=== PATIENT | female | born 1990 | race American Indian/Alaskan Native ===

== ENCOUNTER 2017-10-22 23:10 | Emergency (ER) | payer OTHER ==
[~2017-10-22] VITALS: Ht 160 cm; Wt 50.4 kg
[~2017-10-22 23:10] MED LIST: NON-ASPIRIN EX500 MG PO; ZOLOFT50 MG PO
== END 2017-10-23 00:01 | disposition left against medical advice (07) ==
LOC: ED 23:10
DX: Z53.21 Procedure and treatment not carried out due to patient leaving prior to being seen by health care provider (principal)

== ENCOUNTER 2023-02-03 18:35 | Emergency (ER) | payer OTHER ==
[~2023-02-03] VITALS: Ht 160 cm; Wt 88.0 kg
[~2023-02-03 18:35] MED LIST changes: +BACTRIM DS TAB1 EACH PO
--- OUTSIDE RECORDS SUMMARY | 2023-02-03 18:43 | XMS ---
PreManage Notification: ROB SANTORO Security Hot Room Attendant Events No recent Security Events currently on file CRITERIA MET - Group Notification CARE PROVIDERS There are no care providers on record at this time. Janice has no Care Guidelines for this patient. Thom VISIT COUNT (12 MO.) 1 [facility] TOTAL 1 NOTE: Visits indicate total known visits. ED/C VISIT TRACKING (12 MO.) 02/03/2023 18:36 [facility] [place] TYPE: Emergency COMPLAINT: - LT FINGER LACERATION INPATIENT VISIT TRACKING (12 MO.) No inpatient visits to display in this time frame [id number]
[2023-02-03 21:00] VITALS: BP 114/78
== END 2023-02-03 21:00 | disposition home or self-care (01) ==
LOC: ED 18:35
DX: S61.215A Laceration without foreign body of left ring finger without damage to nail, initial encounter (principal); W45.8XXA Other foreign body or object entering through skin, initial encounter; F17.200 Nicotine dependence, unspecified, uncomplicated; Z23 Encounter for immunization; Z79.899 Other long term (current) drug therapy
CPT/HCPCS: 90471; 90715; 99282-25

== ENCOUNTER 2025-02-12 17:30 | Emergency (ER) | payer OTHER ==
--- OUTSIDE RECORDS SUMMARY | 2025-02-12 17:36 | XMS ---
PreManage Notification: ROB SANTORO Security Policy Intern Events No recent Security Events currently on file CRITERIA MET - Group Notification - [facility] - 2 Visits in 30 Days CARE PROVIDERS There are no care providers on record at this time. Janice has no Care Guidelines for this patient. [facility] NOTE: Visits indicate total known visits. ED/C VISIT TRACKING (12 MO.) [facility] COMPLAINT: - TEST 01/14/2025 06:58 [facility] [place] TYPE: Emergency COMPLAINT: - MEDICAL CLEARANCE 12/29/2024 13:42 [facility] [place] TYPE: Emergency COMPLAINT: - ALTERED LOC DIAGNOSES: - Alcohol use, unspecified with intoxication, unspecified - Allergy status to other antibiotic agents - Blood alcohol level of 240 mg/100 ml or more - Encounter for test, result positive - Nicotine dependence, unspecified, uncomplicated - Transient alteration of awareness INPATIENT VISIT TRACKING (12 MO.) No inpatient visits to display in this time frame [id number]
[2025-02-12 17:43] VITALS: BP 00/00
== END 2025-02-12 17:45 | disposition left against medical advice (07) ==
LOC: ED 17:30
DX: Z32.00 Encounter for pregnancy test, result unknown (principal); F17.200 Nicotine dependence, unspecified, uncomplicated
CPT/HCPCS: 99281

== ENCOUNTER 2025-03-04 15:28 | Emergency (ER) | payer OTHER ==
[~2025-03-04] VITALS: Ht 160 cm; Wt 71.6 kg
--- OUTSIDE RECORDS SUMMARY | 2025-03-04 15:30 | XMS ---
PreManage Notification: ROB SANTORO Security Dialysis Social Worker Events No recent Security Events currently on file CRITERIA MET - Group Notification - [facility] - 2 Visits in 30 Days CARE PROVIDERS There are no care providers on record at this time. Janice has no Care Guidelines for this patient. [facility] MO[facility] NOTE: Visits indicate total known visits. ED/C VISIT TRACKING (12 MO.) [facility] COMPLAINT: - SCREENING 02/12/2025 17:30 [facility] [place] TYPE: Emergency COMPLAINT: - LAB WORK REQUEST DIAGNOSES: - Encounter for test, result unknown - Imprisonment and other incarceration - Nicotine dependence, unspecified, uncomplicated 01/14/2025 06:58 [facility] [place] TYPE: Emergency [...] visits to display in this time frame [id number]
[2025-03-04 16:51] VITALS: BP 123/81
== END 2025-03-04 16:51 | disposition home or self-care (01) ==
LOC: ED 15:28
DX: Z02.89 Encounter for other administrative examinations (principal); Z32.02 Encounter for pregnancy test, result negative; F17.200 Nicotine dependence, unspecified, uncomplicated; Z88.1 Allergy status to other antibiotic agents
CPT/HCPCS: 76801; 76817; 84703; 99284-25